=== PATIENT | male | born 1945 | race Native Hawaiian/Other Pacific Islander ===

== ENCOUNTER 2019-02-16 11:58 | Outpatient (CLI) | payer OTHER | END 2019-02-16 12:00 | disposition short-term general hospital (02) | LOC: AMB 11:58 | DX: R53.1 Weakness (principal) | CPT/HCPCS: A0425; A0427 ==

== ENCOUNTER 2019-02-16 12:07 | Observation (INO) | payer OTHER ==
[2019-02-16] VITALS (8 sets, daily range): BP systolic 152–190; BP diastolic 65–85; TEMP 97–97.5; Ht 180.3 cm; Wt 65.8 kg
[~2019-02-16] VITALS: Ht 180.3 cm; Wt 65.8 kg
[2019-02-16 12:43] LABS: PLATELET COUNT 187 K/uL (142-355)
[2019-02-16 12:48] LABS: SODIUM 139 mmol/L (136-145)
[2019-02-17] VITALS: BP 144/66; TEMP 98.1
[2019-02-17 04:00] VITALS: BP 156/6; TEMP 97.6
[2019-02-17 08:07] VITALS: BP 159/76; TEMP 98.4
[2019-02-17 12:04] VITALS: BP 128/77; TEMP 98.7
== END 2019-02-17 14:27 | disposition home or self-care (01) ==
LOC: ED 12:07 → MED/SURG 16:55
PROVIDERS: ADMIT Family Medicine
DX: R07.89 Other chest pain (principal); I25.10 Atherosclerotic heart disease of native coronary artery without angina pectoris; E11.9 Type 2 diabetes mellitus without complications; J44.9 Chronic obstructive pulmonary disease, unspecified; Z72.0 Tobacco use; R19.5 Other fecal abnormalities
CPT/HCPCS: 36416; 80053; 81000; 82272; 82550; 82948; 84484; 85027; 87502; 93005; 94640; 94664; 94760; 96360; 99220; 99284; G0378; J1956

== ENCOUNTER 2021-08-05 16:21 | Emergency (ER) | payer OTHER ==
[~2021-08-05] VITALS: Ht 180.3 cm; Wt 65.8 kg
[2021-08-05 17:33] LABS: PLATELET COUNT 160 K/uL (142-355)
[2021-08-05 17:42] LABS: POTASSIUM 4.2 mmol/L (3.6-5.2)
[2021-08-05 19:00] VITALS: BP 131/67; TEMP 97.7
[2021-08-06] MEDS ORDERED: ARIPIPRAZOLE2 MG PO (03:00)
[2021-08-06] MEDS ORDERED: LIPITOR40 MG PO (03:01)
[2021-08-06] MEDS ORDERED: ASPIRIN 81 LOW81 MG PO (03:01)
[2021-08-06] MEDS ORDERED: DOCU100C10 PO (03:02)
[2021-08-06] MEDS ORDERED: DULOXETINE HYDR60 MG PO (03:02)
[2021-08-06] MEDS ORDERED: FERROUS SULF325 M1 PO (03:03)
[2021-08-06] MEDS ORDERED: ISOS10TA14 PO (03:04)
[2021-08-06] MEDS ORDERED: LEVEMIR FL100 UNIT/M SC ×2 (03:04→03:05)
[2021-08-06] MEDS ORDERED: KAPSPARGO SPRIN25 MG PO (03:05)
[2021-08-06] MEDS ORDERED: MONTELUKAST SOD10 MG PO (03:06)
[2021-08-06] MEDS ORDERED: MOTRIN IB200 M1 PO (03:37)
[2021-08-06] MEDS ORDERED: NITR0.4S2 SL (03:38)
[2021-08-06] MEDS ORDERED: LYRICA150 MG PO (03:40)
[2021-08-06] MEDS ORDERED: FAMOTIDINE20 MG PO (03:40)
[2021-08-06] MEDS ORDERED: RANO500T PO (03:41)
[2021-08-06] MEDS ORDERED: FINA5TAB2 PO (03:41)
[2021-08-06] MEDS ORDERED: TRAZODONE HYDR100 MG PO (03:42)
[2021-08-06] MEDS ORDERED: TAMSULOSIN0.4 MG PO (03:42)
[2021-08-06] MEDS ORDERED: TRIAMCINOLON0.025 % TOP (03:43)
[2021-08-06] MEDS ORDERED: VALSARTAN40 MG PO (03:44)
[2021-08-06] MEDS ORDERED: VIT C MT (03:46)
[2021-08-06] MEDS ORDERED: ZINC MT (03:46)
[2021-08-06] MEDS ORDERED: NOVOLOG100 UNIT/M SC (04:41)
[2021-08-06] MEDS ORDERED: METF500T PO (11:30)
== END 2021-08-05 19:00 | disposition still patient (30) ==
LOC: ED 16:21 → EDBD 16:21 → ED 19:00
PROVIDERS: Hospitalist
DX: F25.8 Other schizoaffective disorders (principal); F03.91 Unspecified dementia, unspecified severity, with behavioral disturbance; Z11.52 Encounter for screening for COVID-19; Z04.6 Encounter for general psychiatric examination, requested by authority
CPT/HCPCS: 80053; 85027; 87635; 93005; 99283; J1815; U0003